=== PATIENT | male | born 1970 | race Caucasian/White ===

== ENCOUNTER 2017-01-06 17:21 | Inpatient (IN) ==
[2017-01-06] MEDS ORDERED: CLINDAMYCIN INJ 600 MG in PREMIX 1 EACH IV STA (18:10)
[2017-01-06] MEDS ORDERED: CLINDAMYCIN 600 MG/4 ML VIAL ONE (18:27)
[2017-01-06 18:29] LABS: Basophils # 0.1 10*3/uL (0.0-0.2); Basophils % 0.5 % (0.0-0.8); Eosinophils # 0.4 10*3/uL (0.0-0.87); Eosinophils % 2.9 % (0.00-10.9); Hematocrit 43.2 VOL% (42.0-52.0); Hemoglobin 14.9 GM/DL (14.0-18.0); Immature Granulocytes % 0.3 %; Immature Granulocytes Absolute 0.04 #; Lymphocytes # 2.8 10*3/uL (1.4-4.0); Lymphocytes % 21.6 % (21.2-54.2); Mean Corpuscular HGB Conc 34.5 GM/DL (32-36); Mean Corpuscular Hemoglobin 30 PG (27-34); Mean Corpuscular Volume 86.9 FL (87-102); Mean Platelet Volume 10.1 FL (9.6-12.0); Monocytes % 7.8 % (1.7-12.7); Neutrophils # 8.7 10*3/uL (1.4-7.4); Neutrophils % 66.9 % (38.7-73.9); Platelet Count 244 T/CUMM (130-400); Red Blood Count 4.97 MC/CUMM (3.8-5.5); Red Cell Distribution Width 13.9 % (9.3-17.3)
[2017-01-06 18:57] LABS: Calcium 9.1 MG/DL (8.5-10.1); Magnesium 2.3 MG/DL (1.8-2.4); Osmolality,Calculated 282.5 MOS/KG (273-304); Potassium 3.8 MMOL/L (3.5-5.1)
[2017-01-06] MEDS ORDERED: DEXTROSE 50% 25 GM/50 ML VIAL IV PRN (19:09)
[2017-01-06] MEDS ORDERED: ONDANSETRON 4 MG/2 ML VIAL IV PRN (19:09)
[2017-01-06] MEDS ORDERED: GLUCAGON 1 MG VIAL IM PRN (19:09)
--- NOTE | 2017-01-06 19:09 | Emergency Department Note ---
Fidel Juarez Brittany, am scribing for, and in the presence of, Dion Álvarez M.D. 18:09. Henri Juarez Howard T, M.D., personally performed the services described in this documentation, ascribed by Aaliyah Parra in my presence, and it is both accurate and complete [id number] . Arrival - Arrival Chief Complaint: Abscess Stated Complaint: SORE ON KNEE ED Nursing Triage Note: Pt c/o ?abscess to his right anterior lower leg just below his knee [place] [facility] [place]. Redness, swelling, and drainage from the site. Mode of Arrival: Ambulatory Limitations: No Limitations Source: Patient, RN Notes Reviewed Time Seen by Provider: 01/06/17 18:00 - History of Present Illness HPI Narrative: Patient is a 46 y/o white male presenting [place] [facility] [facility] [place] further evaluation of abscess to the anterior aspect of the R lower leg. Patient c/o erythema, edema, and drainage from this region. Had this before in the same area which required hospitalization and IV abx. Denies prior surgical procedure for past abscess. Denies any fever, chills, nausea, or vomiting. First noticed this area about 4 days ago. Patient does have two areas and states that he was able to get drainage from one site, but was unable to get drainage from the anterior site. Borderline diabetic, denies any other MHx. Has no other complaints. Onset (ago): day(s) (4) Consistency: constant Allergies/Adverse Reactions: Allergies Allergy/AdvReac Type Severity Reaction Status Date / Time No Known Allergies Allergy Unverified 02/27/15 14:55 Home Medications: Home Medications Medication Instructions Recorded Confirmed Type metFORMIN [Glucophage] 500 mg PO DAILY W/BREAKFAST 02/27/15 01/06/17 History Review of System - Review of System 12 point system: reviewed and no additional remarkable complaints except as stated - Review of System Constitutional: Absent: chills, fever Respiratory: Absent: respiratory distress Cardiovascular: Present: edema (RLE). Absent: chest pain Gastrointestinal: Absent: abdominal pain, nausea, vomiting Genitourinary male: Absent: urgency, dysuria, frequency Musculoskeletal: Present: leg pain (RLE) Skin: Present: change in color (erythema RLE), other (abscess RLE) Medical,Surgical,& Family Hx - Medical History Endocrine: History of: Diabetes Mellitus (NIDDM) (borderline) Gastrointestinal: History of: GERD, GI Problems (stomach mirage) - Surgical History Abdominal Surgeries: Surgical HX of: Cholecystectomy (6 years) - Social History Smoking Status: Never smoker Exam Vital Signs: Vital Signs Temperature 96.3 F L 01/06/17 17:58 Pulse Rate 102 H 01/06/17 17:58 Respiratory Rate 18 01/06/17 17:58 Blood Pressure 155/95 01/06/17 17:58 O2 Sat by Pulse Oximetry 97 01/06/17 17:21 - General General appearance: alert, in no apparent distress - Head Head exam: Present: atraumatic, normocephalic, normal inspection - Eye Eye exam: Present: normal appearance, PERRL, EOMI - ENT ENT exam: Present: normal exam, normal oropharynx - Neck Neck exam: Present: normal inspection, full ROM, trachea midline - Chest Chest inspection: Present: normal inspection, symmetric chest wall rise - Respiratory Respiratory exam: Present: normal lung sounds bilaterally - Cardiovascular Cardiovascular exam: Present: regular rate, normal rhythm, normal heart sounds - Abdominal Exam Abdominal exam: Present: soft, normal bowel sounds. Absent: tenderness - Extremities Exam Extremities exam: Present: full ROM, tenderness (anterior aspect of RLE ), normal capillary refill. Absent: normal inspection (at the anterior aspect of RLE just under the knee there is an abscess that is actively draining, RLE is edematous and erythematous ) - Back Exam Back exam: Present: normal inspection - Neurological Exam Neurological exam: Present: alert, oriented X3, CN II-XII intact. Absent: motor sensory deficit - Psychiatric Psychiatric exam: Present: normal affect, normal mood - Skin Skin exam: Present: warm, dry Course Course Narrative: Medical decision making: Patient's history and exam consistent with cellulitis probably diabetic also. Discussed with hospitalist for admission and continued treatment Results - Labs CBC & BMP: 01/06/17 18:27 01/06/17 18:27 Lab Results: I have reviewed the patients labs Disposition Clinical Impression: Cellulitis, Cellulitis of right leg, Diabetes mellitus Case discussed with: patient Disposition: Still a Patient Condition: Stable Time of Disposition: 19:09
--- NOTE | 2017-01-06 19:19 | Hospitalist History & Physical ---
Assessment and Plan (1) Cellulitis of right leg Status: Acute Current Visit: Yes (2) Diabetes mellitus Status: Chronic Assessment and plan: We will admit patient our service. Going to put him on Teflaro 600 mg IV twice daily. Will use sliding scale and check an A1c on the patient. We will have wound care evaluation. We need to asses the patient's leg in the morning he might need a surgical evaluation depending on how it looks in the morning Current Visit: Yes Qualifiers: Diabetes mellitus type: type 2 History of Present Illness Chief complaint: Cellulitis History of present illness: Mr. White is a 46 year old male past medical history significant for diabetes who presents the ER today with cellulitis. Patient reports that it started as a small bump a few days ago then he noticed that his leg turned red Kiersten below the knee. He went to [facility] medical clinic and saw the nurse practitioner and she recommended he come over to our hospital for further evaluation. Patient was seen in the fast track and diagnosed with cellulitis I was consulted to admit him. Home Medications Medication Instructions Recorded Confirmed Type metFORMIN [Glucophage] 500 mg PO DAILY W/BREAKFAST 02/27/15 01/06/17 History Allergies Allergy/AdvReac Type Severity Reaction Status Date / Time No Known Allergies Allergy Unverified 02/27/15 14:55 Medical,Surgical,& Family Hx - Medical History Endocrine: History of: Diabetes Mellitus (NIDDM) (borderline) Gastrointestinal: History of: GERD, GI Problems (stomach mirage) - Surgical History Abdominal Surgeries: Surgical HX of: Cholecystectomy (6 years) - Family History Family History: Reports;: Family Diabetes, Family Heart Disease Additional Family History: Kidney failure - Social History Smoking Status: Never smoker 12 point system: reviewed and no additional remarkable complaints except as stated Exam - Constitutional Vitals: Period Temp Pulse Resp BP Sys/Chauhan Pulse Ox Last 24 Hr 96.3 F-96.3 F 102-102 18-18 155-155/95-95 97 - General General appearance: alert, in no apparent distress - Head Head exam: Present: atraumatic, normocephalic, normal inspection - Eye Eye exam: Present: normal appearance, PERRL, EOMI - ENT ENT exam: Present: normal exam, normal oropharynx - Neck Neck exam: Present: normal inspection, full ROM, trachea midline - Chest Chest inspection: Present: normal inspection, symmetric chest wall rise - Respiratory Respiratory exam: Present: normal lung sounds bilaterally - Cardiovascular Cardiovascular exam: Present: regular rate, normal rhythm, normal heart sounds - Abdominal Exam Abdominal exam: Present: soft, normal bowel sounds. Absent: tenderness - Extremities Exam Extremities exam: Present: Patient has cellulitis below the knee. There is also open area of active drainage just under the knee on the right lower extremity. The area is warm to touch - Back Exam Back exam: Present: normal inspection - Neurological Exam Neurological exam: Present: alert, oriented X3, CN II-XII intact. - Psychiatric Psychiatric exam: Present: normal affect, normal mood - Skin Skin exam: Present: warm, dry Results - Labs CBC & BMP: 01/06/17 18:27 01/06/17 18:27
[2017-01-06] MEDS: CEFTAROLINE 600 MG in SODIUM CHLORIDE 0.9% 100 ML IV SCH (22:15)
[2017-01-06] MEDS: ENOXAPARIN 40 MG/0.4 ML SYRINGE SUBCUT SCH (22:15)
[2017-01-06] MEDS: INSULIN REGULAR 100 UNIT/ML SUBCUT SCH (22:20)
[2017-01-07 06:31] LABS: Basophils # 0.1 10*3/uL (0.0-0.2); Basophils % 0.7 % (0.0-0.8); Eosinophils # 0.5 10*3/uL (0.0-0.87); Eosinophils % 4.8 % (0.00-10.9); Hematocrit 41.7 VOL% (42.0-52.0); Hemoglobin 14.2 GM/DL (14.0-18.0); Immature Granulocytes % 0.4 %; Immature Granulocytes Absolute 0.04 #; Lymphocytes # 2.4 10*3/uL (1.4-4.0); Lymphocytes % 23.6 % (21.2-54.2); Mean Corpuscular HGB Conc 34.1 GM/DL (32-36); Mean Corpuscular Hemoglobin 30 PG (27-34); Mean Corpuscular Volume 87.8 FL (87-102); Mean Platelet Volume 10.2 FL (9.6-12.0); Monocytes % 9.9 % (1.7-12.7); Neutrophils # 6.3 10*3/uL (1.4-7.4); Neutrophils % 60.6 % (38.7-73.9); Platelet Count 244 T/CUMM (130-400); Red Blood Count 4.75 MC/CUMM (3.8-5.5); Red Cell Distribution Width 13.8 % (9.3-17.3); White Blood Count 10.3 T/CUMM (4-12)
[2017-01-07 07:03] LABS: Calcium 8.7 MG/DL (8.5-10.1); Osmolality,Calculated 282.3 MOS/KG (273-304); Potassium 4.1 MMOL/L (3.5-5.1)
[2017-01-07] MEDS: INSULIN REGULAR 100 UNIT/ML SUBCUT SCH ×2 (09:08→13:49)
[2017-01-07] MEDS: CEFTAROLINE 600 MG in SODIUM CHLORIDE 0.9% 100 ML IV SCH ×2 (09:09→21:09)
--- NOTE | 2017-01-07 11:49 | Ultrasound Report ---
Exam: US venous doppler LE RT Indication: Cellulitis Date: 01/07/2017 9:54 AM Comparison 02/27/2015 Findings: Grayscale color flow duplex/Doppler imaging and spectral analysis waveform imaging was performed with real-time ultrasound with image stored and captured. The right common femoral, superficial femoral, popliteal saphenous veins are patent with normal augmentation and compression. There is no evidence of popliteal or Brown's cyst. Normal wave form analysis present. Normal color flow Impression: 1. No DVT PROCEDURE INTERPRETED AT [facility] DEPARTMENT OF RADIOLOGY Final Report Signed by: Dr. Cem Murphy
[2017-01-07] MEDS: ENOXAPARIN 40 MG/0.4 ML SYRINGE SUBCUT SCH (21:09)
[2017-01-08] MEDS: INSULIN REGULAR 100 UNIT/ML SUBCUT SCH ×3 (08:21→12:46)
[2017-01-08] MEDS: CEFTAROLINE 600 MG in SODIUM CHLORIDE 0.9% 100 ML IV SCH (08:33)
--- NOTE | 2017-01-08 10:06 | Hospitalist Progress Note ---
Assessment and Plan (1) Cellulitis of right leg Status: Acute Assessment and plan: continue with IV antibiotics Wound care consult Current Visit: Yes (2) Diabetes mellitus Status: Chronic Assessment and plan: stable on current regime Current Visit: Yes Qualifiers: Diabetes mellitus type: type 2 Hospitalist: Subjective Interval history: 01/07/2017 Patient seen. No new complaints Exam - Constitutional Vitals: Period Temp Pulse Resp BP Sys/Chauhan Pulse Ox Last 24 Hr 96.9 F-98.2 F 56-62 18-20 119-164/61-80 96-99 General appearance: no acute distress - Head Head exam: Present: normal inspection - Respiratory Respiratory exam: Present: clear to auscultation bilaterally - Cardiovascular Cardiovascular exam: Present: regular rate and rhythm - GI/Abdominal GI/Abdominal exam: Present: normal bowel sounds - Extremities Exam Extremities exam: Present: other (erythema redness and wound on the right knee) - Neurological Exam Neurological exam: Present: alert Results - Labs CBC & BMP: 01/07/17 06:02 01/07/17 06:02 Lab Results: I have reviewed the past 24 hour labs Quality Measures - Stroke Symptom Onset Unknown: No
--- NOTE | 2017-01-08 10:09 | Hospitalist Progress Note ---
Assessment and Plan (1) Cellulitis of right leg Status: Acute Assessment and plan: Improved, will not need Suregrey consult. continue with IV antibiotics, Doppler negative for DVT Continue with Wound care consult Current Visit: Yes (2) Diabetes mellitus Status: Chronic Assessment and plan: stable on current regime [id number] Current Visit: Yes Qualifiers: Diabetes mellitus type: type 2 Hospitalist: Subjective Interval history: patient seen this am, his wound is actually looking better. He will not need any surgery consult. Doppler USS showed no DVT. Exam - Constitutional Vitals: Period Temp Pulse Resp BP Sys/Chauhan Pulse Ox Last 24 Hr 96.9 F-98.2 F 56-62 18-20 119-164/61-80 96-99 General appearance: no acute distress, over weight - Head Head exam: Present: normal inspection - Respiratory Respiratory exam: Present: clear to auscultation bilaterally - Cardiovascular Cardiovascular exam: Present: regular rate and rhythm - GI/Abdominal GI/Abdominal exam: Present: normal bowel sounds - Extremities Exam Extremities exam: Present: other (right knee wound is looking better) - Neurological Exam Neurological exam: Present: alert, oriented X3 Results - Labs CBC & BMP: 01/07/17 06:02 01/07/17 06:02 Lab Results: I have reviewed the past 24 hour labs Quality Measures - Stroke Symptom Onset Unknown: No
--- NOTE | 2017-01-08 13:45 | General Surgery Consult Note ---
Assessment and Plan (1) Ulcer of lower extremity Status: Acute Assessment and plan: Impression: Right lower extremity ulcer with nonviable tissue Plan: Plan for debridement at bedside. Discussed with the patient and he agrees to proceed. Current Visit: Yes History of Present Illness Chief complaint: Consult for cellulitis History of present illness: Mr. White is a 46 year old male is been responding well to IV antibiotics for cellulitis of his right lower extremity. He states the redness has improved significantly. I have been asked to evaluate. He has no complaints. He has good range of motion of the knee and no pain with flexion or extension. He has a small area of erythema but in the middle of it is some old dried purulent fluid. As I began to clean this up identified what appeared to be an ulcer with some of the purulence. Home Medications Medication Instructions Recorded Confirmed Type metFORMIN [Glucophage] 500 mg PO DAILY W/BREAKFAST 02/27/15 01/06/17 History Allergies Allergy/AdvReac Type Severity Reaction Status Date / Time No Known Allergies Allergy Unverified 02/27/15 14:55 Medical,Surgical,& Family Hx - Medical History Endocrine: History of: Diabetes Mellitus (NIDDM) (borderline) Gastrointestinal: History of: GERD, GI Problems (stomach mirage) Other: History of: MRSA - Surgical History Thoracic Surgeries: Patient denies;: Organ Transplant HEENT Surgeries: Patient denies: Eye Surgery Abdominal Surgeries: Surgical HX of: Cholecystectomy (6 years) - Family History Family History: Reports;: Family Diabetes, Family Heart Disease - Social History Smoking Status: Never smoker Frequency of Alcohol Use: None Type of Drug Use: None 12 point system: reviewed and no additional remarkable complaints except as stated Exam - Constitutional Vitals: Period Temp Pulse Resp BP Sys/Chauhan Pulse Ox Last 24 Hr 96.9 F-98.2 F 56-66 18-24 119-150/61-86 95-99 General appearance: no acute distress - Head Head exam: Present: normocephalic - ENT Mouth exam: Present: normal external inspection - Neck Neck exam: Present: normal inspection - Respiratory Respiratory exam: Present: clear to auscultation bilaterally - Cardiovascular Cardiovascular exam: Present: RRR - GI/Abdominal GI/Abdominal exam: Present: soft - Extremities Exam Extremities exam: Present: other (Small 1 x 1 cm area of ulceration with nonviable tissue present) - Neurological Exam Neurological exam: Present: alert, oriented X3 Speech: Present: normal - Skin Skin exam: Present: normal color Quality Measures - Stroke Symptom Onset Unknown: No Results - Labs CBC & BMP: 01/07/17 06:02 01/07/17 06:02 Lab Results: I have reviewed the past 24 hour labs
--- NOTE | 2017-01-08 13:47 | Operative Note ---
Date of procedure: 01/08/17 Pre-op diagnosis: Right lower extremity ulceration/wound Post-op diagnosis: same Procedure: Procedure performed: Excisional debridement right lower extremity ulcer including nonviable skin and subcutaneous tissue. Area debrided 1 x 1 cm Procedure in detail: After discussing risks and benefits and alternatives with the patient he wanted to proceed with debridement. A curette was used to perform excisional debridement removing the nonviable skin and subcutaneous tissue and the accompanying purulence. Some of the tissue appeared slightly gummy. Although not obvious nonviable tissue was removed. There was good hemostasis with direct pressure. Dressings applied and the wound will be packed with quarter inch iodoform. Will show the patient had a pack with iodoform. I have given him wound care instructions. His cellulitis has apparently responded extremely well and I think he could be managed as an outpatient on p.o. antibiotics such as clindamycin. I will leave that up to the admitting physician. I had like to see him back in 1-2 weeks. The nurses will give him my office number to schedule an appointment. He was instructed to return should he have any fever worsening pain or increase in redness drainage or anything else abnormal. Anesthesia: none Surgeon / Physician: Yosef Bray Estimated blood loss: other (Less than 5 cc) Specimens: none sent Condition: stable Disposition: PACU Results - Labs CBC & BMP: 01/07/17 06:02 01/07/17 06:02 Discharge Plan - Discharge Medications No Action metFORMIN [Glucophage] 500 mg PO DAILY W/BREAKFAST - Follow Up or Referral - Forms/Instructions
[2017-01-08 16:05] VITALS: BP 145/68
--- NOTE | 2017-01-08 16:19 | Discharge Summary ---
Hospital Course - Hospital Course Hospital Course: Mr. White is a 46 year old male past medical history significant for diabetes who was admitted for right knee cellulitis. He was admitted, started on IV Ceftaroline. BC showed no growth. Doppler was negative for a DVT. [id number]. Wound care saw in consultation. Surgery saw and did a bedside excisional debridement right lower extremity ulcer including nonviable skin and subcutaneous tissue. Area debrided 1 x 1 cm. Dressings applied and the wound will be packed with quarter inch iodoform. He was placed on sliding scale.His vitals remained stable. He will be going home on po clindamycin x 10daysto follow up with PCP in 1week and follow up with Dr Bray as scheduled. - Time spent with patient Time with patient DS: Greater than 30 minutes (time spent-greater than 35mins) Diagnosis - Discharge Diagnosis (1) Cellulitis of right leg Status: Acute (2) Diabetes mellitus Status: Chronic Discharge Plan - Discharge Data Disposition: Disch To Home/Self Care Condition at Discharge: Stable Discharge Diet: diabetic diet - Discharge Medications New HYDROcodone/ACETAMIN 7.5-325 [Coin 7.5-325] 1 tablet PO Q4H PRN #20 tablet PRN Reason: Pain Moderate (4-7) Clindamycin Cap [Cleocin Cap] 300 mg PO Q6HR #30 capsule Continue metFORMIN [Glucophage] 500 mg PO DAILY W/BREAKFAST - Follow Up or Referral - Forms/Instructions Additional Discharge Instructions: Follow with PCP in 1week, Follow with surgery as scheduled. Exam - Constitutional Vitals: Period Temp Pulse Resp BP Sys/Chauhan Pulse Ox Last 24 Hr 96.1 F-98.2 F 54-66 18-24 119-150/61-86 95-98 General appearance: no acute distress - Head Head exam: Present: normal inspection - Respiratory Respiratory exam: Present: clear to auscultation bilaterally - Cardiovascular Cardiovascular exam: Present: regular rate and rhythm - GI/Abdominal GI/Abdominal exam: Present: normal bowel sounds - Extremities Exam Extremities exam: Present: other (right knees cellulitis and wound) Discharge Results Procedures and tests throughout hospitalization: Pending Orders 01/06/17 18:18 Blood Culture Stat Labs on day of discharge: Labs from last 24 hours 01/08/17 01/08/17 01/07/17 12:01 08:23 21:09 POC Glucose 180 H 170 H 132 H 01/07/17 15:16 POC Glucose 160 H Preliminary micro results at discharge 01/06/17 18:18 Blood Culture - Preliminary Blood No growth at 1 day 01/06/17 18:27 Blood Culture - Preliminary Blood No growth at 1 day DS: Provider Date of admission: 01/06/17 19:13 Primary care physician: . No PCP Attending physician on admission: Kenroy Polo MD Consults: 01/06/17 19:14 Consult to Wound Care - [place] [CONS] Routine Reason for Wound Care: Wound Care Management 01/08/17 10:09 Consult to Physician [CONS] Routine Comment: Consulting Provider: Consult to Specialist Group: Surgery When should Consulting Provider be notified: Now 01/08/17 13:05 Consult to Physician [CONS] Routine Comment: Consulting Provider: Yosef Bray Consulting Provider Notified: Yes When should Consulting Provider be notified: Now When should Consulting Provider be notified: Now Person Notified: Jimena Date Notified: 01/08/17 Time Notified: 11:30 Consult Notification Comment: will see pt today Discharging clinician: Zohra Starr MD
== END 2017-01-08 17:30 | disposition home or self-care (01) | DRG 571 ==
LOC: N.ED 17:21 → N.EDINP 19:09 → SUATTDRO 19:09 → N.2E 19:57
PROVIDERS: ADMIT Internal Medicine; ATTEND Internal Medicine